=== PATIENT | male | born 1945 | race Caucasian/White ===

== ENCOUNTER 2021-08-27 14:55 | Outpatient (CLI) | payer MEDICARE, SELFPAY ==
--- NOTE | 2021-08-27 15:13 | MR_ITS ---
WS: [id number] MRI CERVICAL SPINE NONCONTRAST TECHNIQUE: Sagittal T1, T2 and STIR imaging. Axial T2, gradient, and fiesta imaging. CLINICAL INFORMATION: CERVICAL SPINE INSTABILITY COMPARISON: None. FINDINGS: Straightening of the normal cervical lordosis. Grade 1 anterolisthesis C3 on C4 measuring 3 mm. Sligh t anterolisthesis C7 on T1. C2-C3: Mild disc osteophytic ridging. Mild RIGHT and no LEFT foraminal narrowing. Spinal canal is pat ent. Mild facet arthropathy. C3-C4:Grade 1 anterolisthesis. Disc osteophyte complex with endplate ridging. Mild central canal sten osis. Moderate LEFT and mild RIGHT bony foraminal narrowing. Mild facet arthropathy. C4-C5: Disc osteophyte complex with endplate ridging. Moderate LEFT and mild RIGHT bony foraminal cristina rowing. Mild facet arthropathy. C5-C6: Disc osteophyte complex with endplate ridging. Moderate bilateral bony foraminal narrowing LEF T greater than RIGHT. Mild facet arthropathy. C6-C7: Disc osteophyte complex with endplate ridging. Severe RIGHT and moderate LEFT bony foraminal n arrowing. Mild facet arthropathy. Spinal canal is patent. C7-T1: Slight anterolisthesis. Disc osteophytic ridging. Moderate LEFT and no significant RIGHT geovanna inal narrowing. Spinal canal is patent. Visualized brain stem structures: Normal. Prevertebral soft tissues: Normal. MR/MR cervical spin wo con* [id number] IMPRESSION: 1. Straightening of the normal cervical lordosis with moderate spondylitic naima nges. 2. Grade 1 anterolisthesis C3 on C4 measuring 3 mm. 3. Mild central canal stenosis C3-C4, 4. Moderate to severe bony foraminal narrowing worse at LEFT C4-C5, LEFT C5-C6 , RIGHT C6-C7. 5. Disc space narrowing worse at C4-C7.
== END 2021-08-27 14:56 | disposition home or self-care (01) ==
PROVIDERS: PCP Family Medicine; Visit Provider Family Medicine
DX: M53.2X2 Spinal instabilities, cervical region (principal)
CPT/HCPCS: 72141

== ENCOUNTER 2024-04-09 11:05 | Emergency (ER) | payer MEDICARE, SELFPAY ==
[2024-04-09 11:26] VITALS: BP 175/71; PULSE 93; RESP 17; TEMP 36.5; O2SAT 96; BMI 22.4
[2024-04-09 11:44] LABS: Basophils % 0.4 %; Eosinophils # 0.1 10^3/uL (0.0-0.8); Eosinophils % 1.4 %; Hematocrit 40.3 % (37-53); Lymphocytes # 1.6 10^3/uL (0.8-4.8); Lymphocytes % 19.8 %; Mean Corpuscular HGB Conc 34.2 g/dL (30-55); Mean Corpuscular Hemoglobin 31.5 pg (27-33); Mean Platelet Volume 8.8 fL (7.4-10.4); Monocytes # 0.6 10^3/uL (0.2-0.9); Monocytes % 6.9 %; Neutrophils # 5.76 10^3/uL (1.8-7.7); Neutrophils % 71.3 %; Nucleated Red Blood Cells % 0 %; Platelet Count 292 10^3/cmm (157-399); Red Blood Count 4.38 10^6/uL (3.85-5.65); Red Cell Distribution Width 13.2 % (12.1-15.1); White Blood Count 8.08 10^3/uL (3.29-11.43)
[2024-04-09 12:12] LABS: Alanine Aminotransferase 19 U/L (0-41); Albumin Level 4.3 g/dL (3.5-5.2); Alkaline Phosphatase 79 U/L (40-130); Anion Gap 17.8 (5-19); Aspartate Amino Transferase 29 U/L (0-40); Blood Urea Nitrogen 17 mg/dL (8-23); Calcium 8.7 mg/dL (8.5-10.5); Carbon Dioxide 23 mmol/L (22-29); Chloride 92 mmol/L (98-107); Creatinine Clr Calc Pharmacy 44.4986; Globulin 3.1 g/dL (1.3-4.6); Glucose 99 mg/dL (65-115); Magnesium 2.3 mg/dL (1.7-2.3); Osmolality Calculated 270 mOsm/kg (285-295); Potassium 3.8 mmol/L (3.5-5.1); Sodium 129 mmol/L (136-145); Thyroid Stimulating Hormone 6.97 uIU/mL (0.27-4.20); Total Bilirubin 0.2 mg/dL (0.15-1.2); Total Protein 7.4 g/dL (6.6-8.7)
--- NOTE | 2024-04-09 12:17 | CT_ITS ---
WS: [id number] CT HEAD NONCONTRAST HISTORY: New visual hallucinations/confusion TECHNIQUE: Contiguous axial imaging performed through the brain. Bone and soft tissue windows. Sagitt al and coronal reformats reviewed. All CT scans at [facility] use at least one of these dose optimization techniques: automated exposure control; mA and/or kV adjustment per patient size (includ es targeted exams where dose is matched to clinical indication); or iterative reconstruction. DLP: 1079.18 mGy.cm COMPARISON: None available. No acute intracranial hemorrhage, midline shift or mass effect. Moderate symmetric atrophy. Moderate to advanced small vessel ischemic changes in the white matter. P rior lacunar infarct in the LEFT thalamus. Lacunar infarcts in the RIGHT external capsule. Mild bilat eral cerebellar atrophy. Ventricles: Normal size with no hydrocephalus. No inferior displacement of cerebellar tonsils. Paranasal sinuses: As visualized are clear. Mastoid air cells: Well pneumatized. Calvarium and scalp: Skull is intact with no soft tissue edema or swelling. CT/CT head wo con* [id number] IMPRESSION: 1. No acute intracranial hemorrhage or edema. 2. Moderate symmetric cerebral and cerebellar atrophy with moderate to advance d small vessel disease. 3. 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
--- NOTE | 2024-04-09 12:17 | W.ED.AMS ---
HPI - Altered Mental Status General: Chief Complaint: Altered Mental Status Stated Complaint: reaction to medicine (DR. Caballero) Time Seen by Provider: 04/09/24 11:10 History of Present Illness: 78-year-old male brought in because he has been having some visual hallucinations that are random and has been going on for about 3 to 4 days. Patient has been diagnosed with shingles and has been on valacyclovir for a couple days. He denies any headache or other systemic complaints. Patient reports that just occasional he will see something kind of moving that is not there. Associated symptoms: Reports visual hallucinations Related Data Home Medications Medication Instructions Recorded Confirmed valacyclovir 500 mg tablet 1,000 mg PO TID 04/09/24 04/09/24 Allergies Allergy/AdvReac Type Severity Reaction Status Date / Time No Known Allergies Allergy Verified 04/02/24 21:03 Review of Systems Const: Denies: fever(s) or chills Resp: Denies: dyspnea or productive cough GI: Denies: abdominal pain, nausea or vomiting Neuro: Denies: headache(s), weakness in extremities, difficulty walking, dizziness or vertigo Psych: Reports: visual hallucinations Physical Exam Const: COMMON NORMALS: no acute distress and patient oriented x3 Resp: COMMON NORMALS: normal respiratory effort and No retractions Cardio: COMMON NORMALS: regular rate and regular rhythm RATE: regular rate RHYTHM: regular rhythm GI: COMMON NORMALS: Soft to palpation and non-tender PALPATION: Yes Soft to palpation Extremity: COMMON NORMALS: normal to inspection, full ROM and capillary refill normal Neuro: COMMON NORMALS: patient oriented x3 Skin: RASHES: rashes noted (Mild healing rash right side of neck face shoulder) Course Vital Signs: Vital signs: Vital Signs Temperature 97.7 F 04/09/24 11:26 Pulse Rate 86 04/09/24 12:23 Respiratory Rate 17 04/09/24 11:26 Blood Pressure 135/81 04/09/24 12:23 Pulse Oximetry 97 04/09/24 12:23 Oxygen Delivery Me thod Room Air 04/09/24 12:23 MDM - Altered Mental Status Medical Decision Making Patient's diagnostic studies were ordered reviewed. Patient's labs show slight elevation in his TSH along with some mild decreased sodium. Patient likely slightly dehydrated but able to tolerate p.o. without difficulty.. Patient CT head shows some old findings but no acute findings. Patient's visual hallucinations are likely due to a side effect of valacyclovir. He does report he is doing a lot better following the IV fluids that he received in the ER. He should follow-up with his primary care provider early next week for recheck of his TSH and sodium levels. Patient is EKG showed sinus rhythm, ventricular rate 82, MO 164, QTc 4 3, no acute ST change elevation noted. He is stable and discharged home Lab Data 04/09/24 11:34 04/09/24 11:[address] 04/09/24 12:17 IMPRESSION: 1. No acute intracranial hemorrhage or edema. 2. Moderate symmetric cerebral and cerebellar atrophy with moderate to advanced small vessel disease. 3. 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 Laboratory Results WBC 8.08 10^3/uL (3.29-11.43) 04/09/24 11:34 RBC 4.38 10^6/uL (3.85-5.65) 04/09/24 11:34 Hgb 13.80 g/dL (11.27-16.99) 04/09/24 11:34 Hct 40.3 % (37-53) 04/09/24 11:34 MCV 92.0 fl (82-101) 04/09/24 11:34 MCH 31.5 pg (27-33) 04/09/24 11:34 MCHC 34.2 g/dL (30-55) 04/09/24 11:34 RDW 13.2 % (12.1-15.1) 04/09/24 11:34 Plt Count 292 10^3/cmm (157-399) 04/09/24 11:34 MPV 8.8 fL (7.4-10.4) 04/09/24 11:34 Neut % (Auto) 71.3 % 04/09/24 11:34 Lymph % (Auto) 19.8 % 04/09/24 11:34 [place] % (Auto) 6.9 % 04/09/24 11:34 Eos % (Auto) 1.4 % 04/09/24 11:34 Baso % (Auto) 0.4 % 04/09/24 11:34 Neut # (Auto) 5.76 10^3/uL (1.8-7.7) 04/09/24 11:34 Lymph # (Auto) 1.6 10^3/uL (0.8-4.8) 04/09/24 11:34 [place] # (Auto) 0.6 10^3/uL (0.2-0.9) 04/09/24 11:34 Eos # (Auto) 0.1 10^3/uL (0.0-0.8) 04/09/24 11:34 Baso # (Auto) 0.0 10^3/uL (0.0-0.1) 04/09/24 11:34 Nucleated RBC % (auto) 0 % 04/09/24 11:34 Nucleated RBCs # 0.0 /100WBC 04/09/24 11:34 Sodium 129 mmol/L (136-145) L 04/09/24 11:34 Potassium 3.8 mmol/L (3.5-5.1) 04/09/24 11:34 Chloride 92 mmol/L (98-107) L 04/09/24 11:34 Carbon Dioxide 23 mmol/L (22-29) 04/09/24 11:34 Anion Gap 17.8 (5-19) 04/09/24 11:34 BUN 17 mg/dL (8-23) 04/09/24 11:34 Creatinine 1.5 mg/dL (0.7-1.2) H 04/09/24 11:34 GFR Calculation Not Reportable 04/09/24 11:34 Glucose 99 mg/dL (65-115) 04/09/24 11:34 Calculated Osmolality 270 mOsm/kg (285-295) L 04/09/24 11:34 Calcium 8.7 mg/dL (8.5-10.5) 04/09/24 11:34 Magnesium 2.3 mg/dL (1.7-2.3) 04/09/24 11:34 Total Bilirubin 0.2 mg/dL (0.15-1.2) 04/09/24 11:34 AST 29 U/L (0-40) 04/09/24 11:34 ALT 19 U/L (0-41) 04/09/24 11:34 Alkaline Phosphatase 79 U/L (40-130) 04/09/24 11:34 Total Protein 7.4 g/dL (6.6-8.7) 04/09/24 11:34 Albumin 4.3 g/dL (3.5-5.2) 04/09/24 11:34 Globulin 3.1 g/dL (1.3-4.6) 04/09/24 11:34 TSH 6.97 uIU/mL (0.27-4.20) H 04/09/24 11:34 Urine Color Yellow (Yellow) 04/09/24 13:00 Urine Appearance Clear (CLEAR) 04/09/24 13:00 Urine pH 5.5 (5-7) 04/09/24 13:00 Ur Specific [place] 1.012 (1.005-1.030) 04/09/24 13:00 Urine Protein 1+ (Negative) A 04/09/24 13:00 Urine Glucose (UA) Negative (Normal) 04/09/24 13:00 Urine Ketones Trace (Negative) 04/09/24 13:00 Urine Blood Negative (Negative) 04/09/24 13:00 Urine Nitrate Negative (Negative) 04/09/24 13:00 Urine Bilirubin Negative (Negative) 04/09/24 13:00 Urine Urobilinogen 0.2 mg/dL (Negative) 04/09/24 13:00 Ur Leukocyte Esterase Negative (Negative) 04/09/24 13:00 Urine RBC 0-2 /hpf (0-2) 04/09/24 13:00 Urine WBC 0-5 /hpf (0-5) 04/09/24 13:00 Ur Squamous Epith Cells 0-5 /hpf (0-5) 04/09/24 13:00 Amorphous Sediment Not Reportable 04/09/24 13:00 Urine Bacteria None seen /hpf (NONE) 04/09/24 13:00 Hyaline Casts 13.22 /lpf 04/09/24 13:00 All radiology interpretation(s) finalized by discharge Discharge Plan Discharge Patient Disposition: Home Clinical Impression: Hallucinations, visual, Hyponatremia, Dehydration, mild Condition: Stable Prescriptions: No Action valacyclovir 500 mg tablet 1,000 mg PO TID Discharge Orders: Discharge ED (Routine); Ordered 04/09/24 Ordered By: Kane Ocasio Referrals: Sin Caballero MD [Primary Care Provider] - Discharge Diet: Usual diet Discharge Activity: Resume usual activity Patient Instructions: Altered Mental Status (ED), Hallucinations (ED), Opioid Safety, Pain Management Activity Restrictions/Additional Instructions: Please follow-up with your primary care provider Friday or Friday if the visual hallucinations have not resolved over the weekend after stopping your valacyclovir. Please be sure you are drinking plenty of fluids. Return to the ER with any concerns. Please have Dr. Caballero follow-up on your minimally elevated thyroid hormone to ensure no further workup needs to be done. Coding Level of Care Code ED [employer] for [employer]en Hammond
[2024-04-09 12:23] VITALS: BP 135/81; PULSE 86; O2SAT 97
--- NOTE | 2024-04-09 12:31 | ECG_ITS ---
[facility] Test Date: 2024-04-09 Pat Name: Richard Miller Department: Room: Gender: Male Manager Assessment: : 1945 Requested By: Dani García Order Number: [id number] Jolly MD: Hector Jose M.D. Measurements Intervals [place] Rate: 82 P: 31 VT: 164 QRS: 31 QRSD: 98 T: 86 QT: 365 QTc: 427 Interpretive Statements SINUS RHYTHM No previous ECG available for comparison Electronically Signed On 04-10-2024 23:08:32 [employer]INE[employer] by Hector Jose M.D. [id number]
[2024-04-09] MEDS: sodium chloride 0.9% 1,000 ML 999 ML IV (13:03)
[2024-04-09 13:21] LABS: Bilirubin Urine Negative (Negative); Blood Urine Negative (Negative); Glucose Urine UA Negative (Normal); Ketones Urine Trace (Negative); Leukocyte Esterase Urine Negative (Negative); Nitrate Urine Negative (Negative); Protein Urine 1+ (Negative); Specific Gravity, Urine 1.012 (1.005-1.030); Urine Appearance Clear (CLEAR); Urine Color Yellow (Yellow); Urobilinogen Urine 0.2 mg/dL (Negative); pH Urine 5.5 (5-7)
[2024-04-09 13:26] LABS: Add Urine Microscopic? YES; Bacteria Urine None Seen /hpf; Hyaline Casts Urine 13.22 /lpf; RBC Urine 0-2 /hpf (0-2); Squamous Epithelial Cell Urine 0-5 /hpf (0-5); WBC Urine 0-5 /hpf (0-5)
[2024-04-09 13:54] LABS: UA Slide Review UA Slide Review Perf
[2024-04-09 14:22] VITALS: BP 142/71; PULSE 85; O2SAT 96
== END 2024-04-09 14:27 | disposition home or self-care (01) ==
PROVIDERS: Family Medicine; Emergency Provider Student in an Organized Health Care Education/Training Program; PCP Family Medicine
DX: R44.1 Visual hallucinations (principal); E87.1 Hypo-osmolality and hyponatremia; E86.0 Dehydration
CPT/HCPCS: 36415; 70450; 80053; 81001; 83735; 84443; 85025; 93005; 99284; J7030